=== PATIENT | female | born 1990 | race Caucasian/White ===

== ENCOUNTER 2018-06-30 00:36 | Outpatient (CLI) | payer MEDICAID, SELFPAY ==
--- NOTE | 2018-06-30 08:54 | DI.US_ITS ---
Many abnormalities cannot be diagnosed. A normal exam does not exclude a congenital anomaly. Radiology No. LMP: 04/29/18 Exam Date: 06/30/18 [facility] wks days on EDC ([facility]) 02/03/19 Confirmed: HISTORY: ENLARGED CEPHALAD PORTION OF POLE, 028.3, ABNL US FINDING PREDICTED GESTATIONAL AGE NUMBER 8.6 weeks with a range of week to weeks. 1 Determined by_X__1STUS___LMP___HISTORY Info. pertaining to fetus # PLACENTA PRESENTATION Grade Cephalic___ Anterior___Posterior___ Breech____ Right Left Transverse(head right___ Fundal___Low-lying___Previa___ Transverse(head left___ Varying BIOMETRY AMNIOTIC FLUID BPD: mm weeks Normal HC: mm weeks AC: mm weeks FL: mm weeks AMNIOTIC FLUID INDEX >26 WK CRL: 20 mm 8.4 weeks Cisterna Magna: mm CI: RUQ: LUQ Cerebellum: cm EFW: grams Percentile RLQ: LLQ YOLK SAC= 3 mm. Total: cms Composite AGE= 8.4 wks EDC by US___02/05/19 BIOPHYSICAL PROFILE ANATOMY IDENTIFIED SCORE 0/2 Heart: 4-Chamber___Rate:BPM__173___ LVOT: RVOT: Amniotic Fluid(>2cms)____ Stomach: Kidneys: Respirations (>30 secs) Bladder: Post. Fossa: Body Flex/Extension 3 vessel cord: Ventricles: cord insertion: Lips:____ Extremity Flex/Extension spinal morphology: Nose: Total Score= Palate: NS=not seen There is a single living intrauterine gestation. Estimated sonographic age is 8 weeks 4 days based on crown rump length. The pole appears grossly unremarkable on this first trimester ultrasound. heart rate of 173 beats per minute was obtained. The yolk sac was visualized. Both ovaries were visualized and are gross unremarkable except for a corpus luteal cyst seen on the left ovary. IMPRESSION: Unremarkable single living intrauterine. Estimated sonographic age is 8 weeks 4 days.
== END 2018-06-30 00:56 ==
PROVIDERS: PCP Nurse Practitioner; Visit Provider Obstetrics & Gynecology Gynecology
DX: O28.3 Abnormal ultrasonic finding on antenatal screening of mother (principal); Z34.91 Encounter for supervision of normal pregnancy, unspecified, first trimester; N83.12 Corpus luteum cyst of left ovary
CPT/HCPCS: 76801

== ENCOUNTER 2018-07-07 09:37 | Outpatient (CLI) | payer MEDICAID, SELFPAY ==
[2018-07-07 10:19] LABS: Abs Immature Grans 0.02 k/cumm (0.0-0.09); Absolute Basophil Count 0.03 k/cumm (0.0-0.2); Absolute Eosinophil Count 0.13 k/cumm (0.0-0.7); Absolute Lymphocyte Count 1.39 k/cumm (1.2-3.4); Absolute Monocyte Count 0.54 k/cumm (0.11-0.7); Absolute Neutrophil Count 8.03 k/cumm (1.2-6.7); Basophils % 0.3; Eosinophils % 1.3; HCT 34.8 % (36.0-46.0); Immature Grans % 0.2; Lymphocytes % 13.7; Mean Corp. HGB Concentration 34.5 g/dL (32.0-36.0); Mean Corpuscular Hemoglobin 30.7 pg (27.0-33.0); Mean Platelet Volume 9.9 fL (8.0-11.0); Monocytes % 5.3; Neutrophils % 79.2; Platelet Count 256 x1000/uL (130-400); RBC 3.91 m/cumm (4.00-5.20); RBC Distribution Width 13.1 % (11.7-14.6); White Blood Cell Count 10.14 k/cumm (4.4-10.8)
[2018-07-10 11:17] LABS: Hepatitis C Ab w Rflx HCV PCR Negative (NEGAT)
[2018-07-10 11:21] LABS: HIV-1/2 Ag & Ab Screen Negative (NEGAT)
[2018-07-10 11:45] LABS: Hepatitis B Surface Ag Negative (NEGAT)
[2018-07-10 12:21] LABS: Varicella IgG Antibody Positive
[2018-07-10 12:23] LABS: Rubella IgG Ab (UVM) Positive
[2018-07-10 13:41] LABS: Chlamydia Result Negative; GC Result Negative; Specimen Description URINE
[2018-07-10 13:53] LABS: Syphilis Serology (RPR) Negative (Negative)
== END 2018-07-07 09:57 ==
PROVIDERS: PCP Nurse Practitioner; Visit Provider Advanced Practice Midwife
DX: Z34.91 Encounter for supervision of normal pregnancy, unspecified, first trimester (principal); Z11.4 Encounter for screening for human immunodeficiency virus [HIV]; Z11.59 Encounter for screening for other viral diseases; Z01.84 Encounter for antibody response examination; Z11.3 Encounter for screening for infections with a predominantly sexual mode of transmission
CPT/HCPCS: 36415; 80055; 80307; 86787; 86803; 86850; 86900; 86901; 87340; 87389; 87491; 87591; 86592; 86762

== ENCOUNTER 2018-07-07 12:09 | Outpatient (CLI) | payer MEDICAID, SELFPAY ==
[2018-07-07 12:02] LABS: *AMPHETAMINES SCREEN URINE Negative (Negative); *BARBITURATES SCREEN URINE Negative (Negative); *BENZODIAZEPINES SCREEN URINE Negative (Negative); Cannabinoids THC POSITIVE (Negative); Cocaine Screen,Urine Negative (Negative); METHADONE URINE SCREEN Negative (Negative); OPIATES URINE SCREEN Negative (Negative)
[2018-07-07 12:05] LABS: Tricyclic Antidepressants Negative (Negative)
[2018-07-12 07:52] LABS: Buprenorphine Negative; Norbuprenorphine Negative
== END 2018-07-07 12:29 ==
PROVIDERS: PCP Nurse Practitioner; Visit Provider Advanced Practice Midwife
DX: Z34.91 Encounter for supervision of normal pregnancy, unspecified, first trimester (principal)
CPT/HCPCS: 80307; 87077; 87491; 87591; 87086; 87186

== ENCOUNTER 2018-08-18 18:52 | Outpatient (REF) | payer MEDICAID, SELFPAY | END 2018-08-18 19:12 | LOC: LBN 18:52 | PROVIDERS: PCP Nurse Practitioner; Visit Provider Advanced Practice Midwife | DX: Z34.91 Encounter for supervision of normal pregnancy, unspecified, first trimester (principal) | CPT/HCPCS: 87086 ==

== ENCOUNTER 2018-08-25 11:55 | Outpatient (CLI) | payer MEDICAID, SELFPAY ==
[2018-08-31 14:47] LABS: Result Summary NEGATIVE; Specimen WB Whole Blood
== END 2018-08-25 12:15 ==
PROVIDERS: PCP Nurse Practitioner; Visit Provider Advanced Practice Midwife
DX: Z34.92 Encounter for supervision of normal pregnancy, unspecified, second trimester (principal); Z36.89 Encounter for other specified antenatal screening
CPT/HCPCS: 36415; 81220

== ENCOUNTER 2018-09-08 02:18 | Outpatient (CLI) | payer MEDICAID, SELFPAY ==
--- NOTE | 2018-09-08 14:21 | DI.US_ITS ---
SYMPTOMS/DIAGNOSIS: 18-WEEK ANATOMY SURVEY, Z34.90, OB ULTRASOUND: Predicted Gestational Age: Indication/History: 18+6 Wks Range: 17+6 to 19+6 Prior US done on: Determined by: First US LMP History EDC by prior US: 02/03/19 For multiple gestations: Baby PLACENTA: Grade: 0-I Location: Anterior X Posterior PRESENTATION: RT LT LOW LYING PREVIA Cephalic Trans (Head RT LT ) Varied X Breech BIOMETRY: Anatomy Identified: BPD: 41 mm 18+2 wks 4 chamber Heart X Heart Rate 150 BPM HC: 159 mm 18+5 wks LVOT X Post Fossa X AC: 137 mm 19+1 wks RVOT X Ventricles X FL: 29 mm 18+5 wks Stomach X Nose X Bladder X Lips X Cisterna Magna: 3.1 mm CI: 71 Kidneys X Palate X Cerebellum: 1.97 cm 3-vessel cord X Spine X EFW: 263 grms 48% Cord Insertion X NS= not seen Composite Age (US) 18+5 wks Many abnormalities cannot be diagnosed. A normal exam does not exclude congenital abnormality. EDC by US 02/04/19 Amniotic Fluid Index: Normal RUQ: LUQ: RLQ: LLQ: Total: cm Biophysical Profile: Score 0/2 GEOVANNI (>2cm) Respirations (>30 sec) Body flexion/extension Extremity flexion/extension TOTAL SCORE COMMENTS: Comparison is made with June,. The fetus is in variable position during the exam. The placenta is posterior. The biometric measurements correspond to 18 weeks 5 days and an EDC of January,. No abnormalities are identified. The amniotic fluid appears visually normal. IMPRESSION: survey is within normal limits.
== END 2018-09-08 02:38 ==
PROVIDERS: PCP Nurse Practitioner; Visit Provider Advanced Practice Midwife
DX: Z34.92 Encounter for supervision of normal pregnancy, unspecified, second trimester (principal)
CPT/HCPCS: 76805

== ENCOUNTER 2018-09-15 16:25 | Outpatient (CLI) | payer MEDICAID, SELFPAY ==
[2018-09-19 13:13] LABS: AFP 58.3 ng/mL; Calculated age at EDD 26 years; Cigarette smoking status non-smoker; GA used in risk estimate Scan estimate; INHIBIN 156 pg/mL; IVF Pregnancy No; Initial or repeat testing Initial testing; Insulin dependent diabetes No; Maternal Weight 150 lbs; Number of Fetuses 1; Physician Phone Number 802-748-7300; Prev Down(T21)/Trisomy Pregnan No; Prev Pregnancy w/NTD No; RECOMMENDED FOLLOW UP None.; Results Summary Normal risk; hCG, TOTAL 42.9 IU/mL; uE3 2.06 ng/mL; uE3 MoM 1.11 MoM
== END 2018-09-15 16:45 ==
PROVIDERS: PCP Nurse Practitioner; Visit Provider Advanced Practice Midwife
DX: Z34.92 Encounter for supervision of normal pregnancy, unspecified, second trimester (principal); Z36.89 Encounter for other specified antenatal screening
CPT/HCPCS: 36415; 81511

== ENCOUNTER 2018-11-10 14:53 | Outpatient (CLI) | payer MEDICAID, SELFPAY ==
[2018-11-10 15:19] LABS: HCT 31.9 % (36.0-46.0); HGB 10.8 g/dL (12.0-15.5); Mean Corp. HGB Concentration 33.9 g/dL (32.0-36.0); Mean Corpuscular Hemoglobin 31.8 pg (27.0-33.0); Mean Corpuscular Volume 93.8 fL (80-95); Mean Platelet Volume 9.8 fL (8.0-11.0); Platelet Count 217 x1000/uL (130-400); RBC Distribution Width 13.4 % (11.7-14.6); White Blood Cell Count 12.82 k/cumm (4.4-10.8)
[2018-11-10 15:29] LABS: Glucose,1 Hr (Glucola) 117 mg/dL (80-140)
== END 2018-11-10 15:13 ==
PROVIDERS: PCP Nurse Practitioner; Visit Provider Advanced Practice Midwife
DX: Z34.93 Encounter for supervision of normal pregnancy, unspecified, third trimester (principal)
CPT/HCPCS: 36415; 82950; 85027

== ENCOUNTER 2018-12-01 16:38 | Outpatient (REF) | payer MEDICAID, SELFPAY | END 2018-12-01 16:58 | LOC: LBN 16:38 | PROVIDERS: PCP Nurse Practitioner; Visit Provider Advanced Practice Midwife | DX: Z87.440 Personal history of urinary (tract) infections (principal) | CPT/HCPCS: 87086 ==

== ENCOUNTER 2019-01-09 01:03 | Outpatient (CLI) | payer MEDICAID, SELFPAY ==
--- NOTE | 2019-01-09 07:04 | DI.US_ITS ---
SYMPTOM/DIAGNOSIS: CHECK POSITION, SIZE AND FLUID OB ULTRASOUND: The placenta is posterior and Grade II. The fetus is in cephalic position The biometric measurements correspond to 36 weeks 1 day, consistent with previous dating. The amniotic fluid index is normal at 16.7 The estimated weight is 2865 grams, corresponding to 52 percentile. Predicted Gestational Age: Indication/History: 36 +1 Wks Range: 35 +1 to 37 +1 Prior US done on: Determined by: First US LMP History EDC by prior US: 02/07/19 For multiple gestations: Baby PLACENTA: Grade: II Location: Posterior PRESENTATION: RT LT LOW LYING PREVIA Cephalic XX Trans (Head RT LT ) Varied Breech BIOMETRY: Anatomy Identified: BPD: 89 mm 35 +5 wks 4 chamber Heart XX Heart Rate 143 BPM HC: 323 mm 36 +4 wks LVOT Post Fossa AC: 323 mm 36 +2 wks RVOT Ventricles FL: 70 mm 36 +0 wks Stomach XX Nose Bladder Lips Cisterna Magna: mm CI: 78 Kidneys Palate Cerebellum: mm 3 vessel cord Spine EFW: 2865 grms 52 % Cord Insertion NS= not seen Composite Age (US) 36 +1 wks Many abnormalities cannot be diagnosed. A normal exam does not exclude congenital abnormality. EDC by US 02/05/19 Amniotic Fluid Index: Normal COMMENTS: RUQ: 5.33 LUQ: 2.45 RLQ: 3.61 LLQ: 5.27 Total: 16.7 cm Biophysical Profile: Score 0/2 GEOVANNI (>2cm) Respirations (>30 sec) Body flexion/extension Extremity flexion/extension TOTAL SCORE
[2019-01-09 08:17] LABS: Bilirubin Negative (Negative); Blood Small (Negative); Clarity Cloudy (Clear); Glucose Negative (Negative); Ketones Negative (Negative); Leukocyte Esterase Large (Negative); Nitrite Negative (Negative); Urobilinogen 0.2 EU/dL (Up TO 0.2); pH 6.5 (5-8)
[2019-01-09 08:35] LABS: Bacteria Many HPF (Negative); C & S Indicated? C&S Done As Ordered; WBC >50 HPF (0-5)
== END 2019-01-09 01:23 ==
PROVIDERS: PCP Nurse Practitioner; Visit Provider Advanced Practice Midwife
DX: R35.0 Frequency of micturition; O26.893 Other specified pregnancy related conditions, third trimester; R30.0 Dysuria
CPT/HCPCS: 76816; 87077; 81003; 81015; 87086

== ENCOUNTER 2019-01-12 10:25 | Outpatient (REF) | payer MEDICAID, SELFPAY ==
[2019-01-23 14:43] LABS: Buprenorphine Negative; Norbuprenorphine Negative
== END 2019-01-12 10:45 ==
LOC: LBN 10:25
PROVIDERS: PCP Nurse Practitioner; Visit Provider Advanced Practice Midwife
DX: O26.893 Other specified pregnancy related conditions, third trimester (principal)
CPT/HCPCS: 80307

== ENCOUNTER 2019-01-26 19:28 | Outpatient (REF) | payer MEDICAID, SELFPAY | END 2019-01-26 19:48 | LOC: LBN 19:28 | PROVIDERS: PCP Nurse Practitioner; Visit Provider Advanced Practice Midwife | DX: R69 Illness, unspecified (principal) | CPT/HCPCS: 87086 ==

== ENCOUNTER 2019-01-31 17:06 | Outpatient (REF) | payer MEDICAID, SELFPAY | END 2019-01-31 17:26 | LOC: LBN 17:06 | PROVIDERS: PCP Nurse Practitioner; Visit Provider Advanced Practice Midwife | DX: Z34.93 Encounter for supervision of normal pregnancy, unspecified, third trimester (principal) | CPT/HCPCS: 87086 ==

== ENCOUNTER 2019-02-07 15:14 | Inpatient (IN) | payer MEDICAID, SELFPAY ==
[2019-02-07 15:49] LABS: HCT 35.4 % (36.0-46.0); HGB 12.1 g/dL (12.0-15.5); Mean Corp. HGB Concentration 34.2 g/dL (32.0-36.0); Mean Corpuscular Volume 93.7 fL (80-95); Mean Platelet Volume 9.8 fL (8.0-11.0); Platelet Count 260 x1000/uL (130-400); RBC 3.78 m/cumm (4.00-5.20); RBC Distribution Width 13.1 % (11.7-14.6); White Blood Cell Count 11.71 k/cumm (4.4-10.8)
[2019-02-07] MEDS: Lactated Ringers 1,000 ML 125 ML IV (15:49)
[2019-02-07] MEDS: Penicillin G POT. 5,000,000 UNITS in Normal Saline 100 ML 200 UNITS IVPB (15:49)
[2019-02-07] MEDS: Penicillin G POT. 3,000,000 UNITS in Normal Saline 50 ML 100 UNITS IVPB ×2 (19:53→23:52)
[2019-02-07] MEDS: Normal Saline Flush 10 ML SYR IVP (20:00)
[2019-02-08] MEDS: FentaNYL/ROPIvacaine 2 mcg/ml and 0.1% 200 ML CADD Cassette EP (04:50)
[2019-02-08] MEDS: Penicillin G POT. 3,000,000 UNITS in Normal Saline 50 ML 100 UNITS IVPB ×2 (05:14→08:54)
[2019-02-08] MEDS: Ibuprofen 600 MG TAB PO ×2 (13:06→20:16)
[2019-02-08] MEDS: Acetaminophen 325 MG TAB 650 MG PO ×2 (13:08→20:17)
[2019-02-09] MEDS: Acetaminophen 325 MG TAB 650 MG PO ×3 (00:09→13:03)
[2019-02-09] MEDS: Ibuprofen 600 MG TAB PO ×2 (02:10→08:34)
[2019-02-09 06:43] LABS: HCT 32.4 % (36.0-46.0); HGB 10.8 g/dL (12.0-15.5); Mean Corp. HGB Concentration 33.3 g/dL (32.0-36.0); Mean Corpuscular Hemoglobin 31.7 pg (27.0-33.0); Mean Platelet Volume 10.1 fL (8.0-11.0); Platelet Count 205 x1000/uL (130-400); RBC 3.41 m/cumm (4.00-5.20); White Blood Cell Count 9.59 k/cumm (4.4-10.8)
[2019-02-09 14:40] LABS: *AMPHETAMINES SCREEN URINE Negative (Negative); *BARBITURATES SCREEN URINE Negative (Negative); *BENZODIAZEPINES SCREEN URINE Negative (Negative); Cannabinoids THC Negative (Negative); Cocaine Screen,Urine Negative (Negative); METHADONE URINE SCREEN Negative (Negative); OPIATES URINE SCREEN Negative (Negative)
[2019-02-09 14:42] LABS: Tricyclic Antidepressants Negative (Negative)
[2019-02-14 17:20] LABS: Buprenorphine Negative; Norbuprenorphine Negative
== END 2019-02-09 15:55 | disposition home or self-care (01) | DRG 807 ==
PROVIDERS: Admitting Provider Advanced Practice Midwife; PCP Nurse Practitioner; Visit Provider Advanced Practice Midwife
DX: O42.02 Full-term premature rupture of membranes, onset of labor within 24 hours of rupture (principal); Z37.0 Single live birth; O69.81X0 Labor and delivery complicated by cord around neck, without compression, not applicable or unspecified; O48.0 Post-term pregnancy; Z3A.40 40 weeks gestation of pregnancy; O99.824 Streptococcus B carrier state complicating childbirth; Z67.40 Type O blood, Rh positive
CPT/HCPCS: 36415; 80307; 85027; 86850; 86900; 86901; J2540; J3490

== ENCOUNTER 2019-03-23 14:28 | Outpatient (CLI) | payer MEDICAID, SELFPAY ==
[2019-03-23 14:59] LABS: HGB 12.7 g/dL (12.0-15.5); Mean Corp. HGB Concentration 33.4 g/dL (32.0-36.0); Mean Corpuscular Hemoglobin 30.2 pg (27.0-33.0); Mean Corpuscular Volume 90.5 fL (80-95); Mean Platelet Volume 9.2 fL (8.0-11.0); Platelet Count 316 x1000/uL (130-400); RBC Distribution Width 12.1 % (11.7-14.6); White Blood Cell Count 6.22 k/cumm (4.4-10.8)
== END 2019-03-23 14:48 ==
PROVIDERS: PCP Nurse Practitioner; Visit Provider Advanced Practice Midwife
DX: Z39.2 Encounter for routine postpartum follow-up (principal); Z30.9 Encounter for contraceptive management, unspecified
CPT/HCPCS: 36415; 85027

== ENCOUNTER 2019-04-20 12:54 | Outpatient (REF) | payer MEDICAID, SELFPAY ==
[2019-04-23 14:43] LABS: Chlamydia Result Negative (Negative)
[2019-04-23 15:55] LABS: GC Result Negative (Negative)
== END 2019-04-20 13:14 ==
LOC: LBN 12:54
PROVIDERS: PCP Nurse Practitioner; Visit Provider Advanced Practice Midwife
DX: N76.0 Acute vaginitis (principal); Z11.3 Encounter for screening for infections with a predominantly sexual mode of transmission
CPT/HCPCS: 87491; 87591; 87480; 87510; 87660

== ENCOUNTER 2022-03-19 09:58 | Outpatient (REF) | payer MEDICAID, SELFPAY ==
--- NOTE | 2022-03-19 08:15 | PAPFT_PTH ---
PATIENT: Zari Blake LOC: NCN #:[id number] AGE/SX: 31/F ROOM: RE03/19/[address]: Earlene Verdugo : 1990 BED: DIS: 03/19/2022 SPEC #: [id number] RECD: 03/19/22 16:01 STATUS: KARIS REKimberly #: [id number] JONE: 03/19/22 08:[address]: Earlene Verdugo DEPT: [facility] Cytology RECD BY: Melina Winston Tissues: 1 - CX/ENDOCX FOR PAP SMEARS Procedures: PAP THIN PREP/[facility] Screening Comments: [id number]
--- OUTSIDE RECORDS SUMMARY | 2022-03-19 10:05 | XMS_ITS | Encounter Summary ---
:1990 Author Organization [facility] Address [address] [place] [address] Care Team Providers Name Role Phone Unknown, Provider Primary Care Provider Encounter Details Date Type Department Care Team Description 10/09/2014 Results Only [facility] Martha Curtis, [facility] [phone] [place], [place] [id number] (Wo rk) Social History Tobacco Use Types Packs/Day Years Used Date Never Assessed Sex Assigned at Date Recorded Not on file documented as of this encounter Plan of Treatment Not on filedocumented as of this encounter Procedures Procedure Name Priority Date/Time Associated Diagnosis Comme nts PAP TEST- RESULT Routine 10/09/2014 0:00 EDT Resu lts for this ONLY procedure are i n the results section. documented in this encounter Results PAP TEST- RESULT ONLY (10/09/2014 0:00 EDT) Pathology Report: CYTOPATHOLOGY REPORT [facility] Reports generated via electronic interface contain meek ginal data; SERVICES however they are lacking the format of the original re port. Caution should be taken when reading/interpreting unfo rmatted reports. Name: ? ZARI GONZALES ? Accession #: ? [id number] : ? 1990 (Age: 24) ??F ?Collect Date: ? 10/09 Location: ? [facility] ? Receive Date : ? 10/10/2014 Provider: ?MARTHA CURTIS CNM Copy to: ? Specimen/Source: ? Pap Test, Cervix/Endocervix, ThinPrep Imaging System with manual evaluation Last Menstrual Period: ? 11/27/13 Menstrual/ Status: ? Post ? SPECIMEN ADEQUACY ? Satisfactory for Evaluation - transformation zone component present GENERAL CATEGORIZATION ? Negative for Intraepithelial Lesion or Malignan cy ? Document reviewed and electronically signed by: ? TORO Suarez(ASCP) ? Report Date: ??10/17/2014 13:19 End of Report Specimen Performing Organization Address City/State/ZIP Code Phon e Number [facility] [address] [place] [address] SERVICES documented in this encounter Visit Diagnoses Not on filedocumented in this encounter Care Teams Network Support Relationship Specialty Start Date End Date Unknown, Provider, PCP - General 10/10/14 documented as of this encounter
--- OUTSIDE RECORDS SUMMARY | 2022-03-19 10:05 | XMS_ITS | Encounter Summary ---
:1990 Author Organization [facility] Address [address] [place] [address] Care Team Providers Name Role Phone Unknown, Provider Primary Care Provider Encounter Details Date Type Department Care Team Description 04/20/2019 Lab Requisition [facility] Unknown, Provider, Pathology & Laboratory [facility] [address] [place] [address] [place] [address] Social History Tobacco Use Types Packs/Day Years Used Date Never Assessed Sex Assigned at Date Recorded Not on file documented as of this encounter Plan of Treatment Not on filedocumented as of this encounter Procedures Procedure Name Priority Date/Time Associated Comments Diagnosis CHLAMYDIA/N. Routine 04/20/2019 11:20 Results for this GONORRHOEAE AMPLIFIED EST proced ure are in RNA the results section. documented in this encounter Results CHLAMYDIA/N. GONORRHOEAE AMPLIFIED RNA (04/20/2019 11:20 EST) Pathologist Sig nature Gonococcus Result Negative Negative [facility] Chlamydia Result Negative Negative [facility] Specimen Swab - Specimen from uterine cervix (spe cimen) Performing Organization Address City/State/ZIP Code Phon e Number [facility] [address] [place] [address] SERVICES documented in this encounter Visit Diagnoses Not on filedocumented in this encounter Care Teams Automatic Pilot Mechanic Relationship Specialty Start Date End Date Unknown, Provider, PCP - General 10/10/14 documented as of this encounter
--- OUTSIDE RECORDS SUMMARY | 2022-03-19 10:05 | XMS_ITS | Clinical Summary ---
:1990 Author Organization [facility] Address [address] [place] [address] Care Team Providers Name Role Phone Unknown, Provider Primary Care Provider Social History Tobacco Use Types Packs/Day Years Used Date Never Assessed Sex Assigned at Date Recorded Not on file Plan of Treatment Not on file Care Teams Net Sorter Relationship Specialty Start Date End Date Unknown, Provider, PCP - General 10/10/14
--- OUTSIDE RECORDS SUMMARY | 2022-03-19 10:05 | XMS_ITS | Encounter Summary ---
:1990 Author Organization [facility] Address [address] [place] [address] Care Team Providers Name Role Phone Francis Cm MD Primary Care Provider Encounter Details Date Type Department Care Team Description 04/21/2010 Office Visit Dermatology Steve Gaming MD [address] [place] [address] [address] DERMATOLOGY [place], [place] [address] [place] [address] [phone] (Wo rk) Social History Tobacco Use Types Packs/Day Years Used Date Never Assessed Sex Assigned at Date Recorded Not on file documented as of this encounter Plan of Treatment Not on filedocumented as of this encounter Visit Diagnoses Not on filedocumented in this encounter Care Teams News Camera Operator Relationship Specialty Start Date End Date Francis Cm MD PCP - General 04/07/10 [address] [place] [address] documented as of this encounter
--- OUTSIDE RECORDS SUMMARY | 2022-03-19 10:05 | XMS_ITS | Clinical Summary ---
:1990 Author Organization [facility] [place] [address] Care Team Providers Name Role Phone Francis Cm MD Primary Care Provider Social History Tobacco Use Types Packs/Day Years Used Date Never Assessed Sex Assigned at Date Recorded Not on file Plan of Treatment Health Maintenance Due Date Last Done Comments Covid-19 Vaccine (#1) 1990 HIV screen 2010 Hepatitis C Screening 2010 Tdap adult 2011 Tetanus vaccine 2011 PAP Smear 2013 Influenza (Flu) vaccine (1 of 1 - Influenza standard 01/14/2022 series) Care Teams Rubber Molder Relationship Specialty Start Date End Date Francis Cm MD PCP - General 04/07/10 [address] [place] [address]
== END 2022-03-19 09:59 | disposition home or self-care (01) ==
LOC: NCHCN 09:58
PROVIDERS: Visit Provider Nurse Practitioner Family
DX: Z12.4 Encounter for screening for malignant neoplasm of cervix (principal)
CPT/HCPCS: 88142

== ENCOUNTER 2023-07-22 14:56 | Outpatient (REF) | payer MEDICAID, SELFPAY ==
[2023-07-22 15:37] LABS: Abs Immature Grans 0.02 10^3/uL (0.0-0.06); Absolute Basophil Count 0.09 10^3/uL (0.0-0.2); Absolute Eosinophil Count 0.14 10^3/uL (0.0-0.7); Absolute Lymphocyte Count 1.51 10^3/uL (1.2-3.4); Absolute Monocyte Count 0.47 10^3/uL (0.1-0.8); Absolute Neutrophil Count 3.79 10^3/uL (1.2-6.7); Basophils % 1.5; Eosinophils % 2.3; HCT 38.6 % (36.0-46.0); HGB 13.3 g/dL (11.2-15.7); Immature Grans % 0.3; Lymphocytes % 25.1; MCH 30.3 pg (27.0-33.0); MCHC 34.5 % (32.0-36.0); MCV 88 fL (80-95); MPV 10.6 fL (8.0-11.0); Monocytes % 7.8; Platelet Count 246 10^3/uL (130-400); RBC 4.39 10^6/uL (3.93-5.22); RDW 12.2 % (11.7-14.6); RDW-SD 39.7 fL; WBC 6.02 10^3/uL (4.4-10.8)
[2023-07-22 16:04] LABS: ALT 19 U/L (14-59); AST 15 U/L (15-37); Albumin 4.3 g/dL (3.4-5.0); Alkaline Phosphatase 65 U/L (46-116); Anion Gap 10.3 mmol/L (3-11); BUN 11 mg/dL (7-18); Bilirubin, Total 0.6 mg/dL (0.2-1.0); CO2 26.7 mmol/L (21.0-32.0); Calcium 9.3 mg/dL (8.5-10.1); Chloride 104 mmol/L (98-107); Estimated GFR 77.24 (mL/min/1.73m2); Glucose 83 mg/dL (74-106); Sodium 141 mmol/L (136-145); TSH (W/Ref FT4) 1.12 uIU/mL (0.36-3.74); Total Protein 7.5 g/dL (6.4-8.2)
== END 2023-07-22 14:57 | disposition home or self-care (01) ==
LOC: NCHCN 14:56
PROVIDERS: Referring Provider Student in an Organized Health Care Education/Training Program; Visit Provider Student in an Organized Health Care Education/Training Program
DX: K59.09 Other constipation (principal); R10.9 Unspecified abdominal pain
CPT/HCPCS: 80053; 84443; 85025